=== PATIENT | male | born 1990 | race Caucasian/White ===

== ENCOUNTER 2020-11-14 00:17 | Emergency (ER) | payer OTHER ==
[~2020-11-14 00:17] MED LIST: ATENOLOL25 MG PO; CEPHALEXIN PO; CLEOCIN HCL300 MG PO; ENSURE ORIGINA237 ML PO; HABITROL 21 MG P1 EA TD; IBUPROFEN400 MG PO; IBUPROFEN600 MG PO
[2020-11-14] MEDS ORDERED: PENVEE K 500 M500 MG PO (04:22)
== END 2020-11-14 04:35 | disposition home or self-care (01) ==
LOC: ER1 00:17
DX: K04.7 Periapical abscess without sinus (principal); F17.200 Nicotine dependence, unspecified, uncomplicated
CPT/HCPCS: 99282